=== PATIENT | male | born 1990 | race Caucasian/White ===

== ENCOUNTER 2018-04-11 01:18 | Emergency (ER) | payer SELFPAY ==
[~2018-04-11] VITALS: Ht 177.8 cm; Wt 59.0 kg
[2018-04-11] MEDS ORDERED: CEFAZOLIN 1000MG PREMIX 50 ML IV ONE (02:00)
[2018-04-11] MEDS ORDERED: TETANUS, DIPHTHERIA, PERTUSSIS VAC/PF 0.5ML (>7YR OLD) IM ONE (02:00)
[2018-04-11] MEDS ORDERED: LIDOCAINE HCL 1% 20ML VIAL (Pyxis) INJ INFIL ONE (04:00)
[2018-04-11 04:12] LABS: BASOPHILS % 0.7 % (0.0-2.0); EOSINOPHILS % 0.1 % (0.0-5.0); HEMATOCRIT. 45.7 % (42.0-52.0); HEMOGLOBIN. 15.7 g/dL (14.0-18.0); LYMPHOCYTES % 14.3 % (20.0-50.0); MEAN CORPUSCULAR HEMOGLOBIN 29.1 pg (28.0-32.0); MEAN PLATELET VOLUME 9.3 fl (7.4-10.4); NEUTROPHILS % 79.9 % (40.0-76.0); PLATELET 288 x1000/uL (130-400); RED BLOOD CELL COUNT 5.38 mill/uL (4.7-6.1); RED CELL DISTRIBUTION WIDTH 13.4 % (11.6-14.6)
[2018-04-11 04:15] LABS: CHLORIDE 107 mEq/L (98-107)
[2018-04-11 04:19] LABS: ETHANOL BLOOD 221 mg/dL
[2018-04-11 04:33] LABS: CLARITY URINE CLEAR (CLEAR); COLOR URINE YELLOW (YELLOW); KETONES URINE NEGATIVE (NEGATIVE); LEUKOCYTE ESTERASE URINE NEGATIVE (NEGATIVE); NITRITE URINE NEGATIVE (NEGATIVE); OCCULT BLOOD URINE NEGATIVE (NEGATIVE); PH URINE 6.5 (4.5-8.0); PROTEIN URINE NEGATIVE (NEGATIVE); SPECIFIC GRAVITY URINE 1.007 (1.005-1.030); UROBILINOGEN URINE 0.2 E.U./dL (0.2-1.0)
[2018-04-11 07:01] VITALS: BP 112/48
== END 2018-04-11 07:03 | disposition home or self-care (01) ==
LOC: ER 01:18 → EDBD 01:18 → ER 07:03
DX: S61.211A Laceration without foreign body of left index finger without damage to nail, initial encounter (principal); F10.229 Alcohol dependence with intoxication, unspecified; Y90.7 Blood alcohol level of 200-239 mg/100 ml; W45.8XXA Other foreign body or object entering through skin, initial encounter; Y92.488 Other paved roadways as the place of occurrence of the external cause
CPT/HCPCS: 12002; 36415; 70450; 71045; 73130; 80053; 80307; 80329; 81003; 84443; 85025; 90471; 90715; 96365; 99285; G0482; J0690; J3490; X7700; Z7610

== ENCOUNTER 2018-04-17 13:03 | Emergency (ER) | payer SELFPAY ==
[~2018-04-17] VITALS: Ht 188 cm; Wt 79.0 kg
[2018-04-17 14:43] VITALS: BP 112/77
== END 2018-04-17 14:44 | disposition home or self-care (01) ==
LOC: ER 13:03
DX: Z48.02 Encounter for removal of sutures (principal)
CPT/HCPCS: 99281; Z7610

== ENCOUNTER 2019-05-23 07:26 | Emergency (ER) | payer MEDICARE, MEDICAID ==
[~2019-05-23] VITALS: Ht 185.4 cm; Wt 78.0 kg
[2019-05-23] MEDS ORDERED: IBUPROFEN 600MG TABLET PO STA (07:46)
[2019-05-23] MEDS ORDERED: SODIUM CHLORIDE 0.9% 1,000 ML IV ONE (07:46)
[2019-05-23] MEDS ORDERED: ACETAMINOPHEN 325MG TABLET PO STA (07:46)
[2019-05-23] MEDS ORDERED: TETANUS, DIPHTHERIA, PERTUSSIS VAC/PF 0.5ML (>7YR OLD) IM ONE (08:00)
[2019-05-23] MEDS ORDERED: BACITRACIN ZINC OINT UDPKT TOP ONE (08:00)
[2019-05-23] MEDS ORDERED: LIDOCAINE 1%/EPI 1:100,000 10 ML VIAL IJ ONE (08:00)
[2019-05-23] MEDS ORDERED: LIDOCAINE HCL/PF 1% 10 MG/ML 5ML VIAL IJ ONE (08:00)
[2019-05-23] MEDS ORDERED: LIDOCAINE HCL/EPINEPHRINE 1%-EPI 1:100,000 20 ML VIAL INFIL ONE (08:09)
[2019-05-23] MEDS ORDERED: LORAZEPAM 2MG/ML CPJ IV ONE (08:15)
[2019-05-23] MEDS ORDERED: KETOROLAC 15MG/ML VIAL IV ONE (08:15)
[2019-05-23 08:44] LABS: BASOPHILS % 0.7 % (0.0-2.0); EOSINOPHILS % 1.9 % (0.0-5.0); HEMATOCRIT. 51.9 % (42.0-52.0); HEMOGLOBIN. 17.8 g/dL (14.0-18.0); LYMPHOCYTES % 27.4 % (20.0-50.0); MEAN CORPUSCULAR HEMOGLOBIN 30.6 pg (28.0-32.0); MEAN PLATELET VOLUME 10.1 fl (7.4-10.4); MONOCYTES % 9.1 % (2.0-8.0); NEUTROPHILS % 60.9 % (40.0-76.0); PLATELET 292 x1000/uL (130-400); RED BLOOD CELL COUNT 5.83 mill/uL (4.7-6.1)
[2019-05-23 08:50] LABS: CHLORIDE 103 mEq/L (98-107)
[2019-05-23 08:54] LABS: ETHANOL BLOOD < 10 mg/dL
[2019-05-23 10:36] VITALS: BP 107/65
== END 2019-05-23 16:01 | disposition home or self-care (01) ==
LOC: ER 07:26
DX: S61.512A Laceration without foreign body of left wrist, initial encounter (principal); R45.851 Suicidal ideations; F17.200 Nicotine dependence, unspecified, uncomplicated; F12.10 Cannabis abuse, uncomplicated; F41.9 Anxiety disorder, unspecified; F32.9 Major depressive disorder, single episode, unspecified; X78.8XXA Intentional self-harm by other sharp object, initial encounter; Y93.89 Activity, other specified; Y92.89 Other specified places as the place of occurrence of the external cause; Y99.8 Other external cause status
CPT/HCPCS: 12004; 36415; 80053; 80307; 80320; 80329; 85025; 90471; 90715; 96374; 96375; 99283; J1885; J2060; J3490; J7030; G0480